=== PATIENT | female | born 1975 | race Caucasian/White ===

== ENCOUNTER 2018-06-29 13:10 | Emergency (ER) | payer MEDICAID ==
[2018-06-29 13:18] VITALS: TEMP 98.6; BMI 24.3
[2018-06-29 13:32] VITALS: RESP 18; O2SAT 98
--- NOTE | 2018-06-29 13:36 | ED PDOC ---
Arrival/HPI - General Time Seen by Provider: 06/29/18 13:17 Historian: Patient - History of Present Illness Narrative History of Present Illness (Text): 06/29/18 13:23 43 y/o female, no significant pmh, nkda, c/o rt. flank pain and lt. sided chest pain x 2 weeks. Pt. stated that she has rt. flank pain with occasionally to the RLQ/rt. thigh region, stated that she feels left sided chest pain as well. Pt. has no nausea/vomiting/diarrhea, no pleuritic pain, no numbness or tingling, no rash, no diarrhea, no other medical or psychological complaints. Past Medical History - Provider Review Nursing Documentation Reviewed: Yes Primary Care Provider: Lee Luther Jr. - Infectious Disease Hx of Infectious Diseases: None - Tetanus Immunization Tetanus Immunization: Up to Date - Past Medical History Past Medical History: No Previous - Psychiatric Hx Depression: No Hx Emotional Abuse: No Hx Physical Abuse: No Hx Substance Use: Yes - Past Surgical History Past Surgical History: No Previous - Anesthesia Hx Anesthesia: No - Suicidal Assessment Feels Threatened In Home Enviroment: No Family/Social History - Physician Review Nursing Documentation Reviewed: Yes Family/Social History: Unknown Family HX Smoking Status: Heavy Smoker > 10 Cigarettes Daily Hx Alcohol Use: Yes Frequency of alcohol use: Socially Hx Substance Use: Yes Substance used: marijuana Hx Substance Use Treatment: No Allergies/Home Meds Allergies/Adverse Reactions: Allergies No Known Allergies Allergy (Verified 06/29/18 13:18) Review of Systems - Review of Systems Constitutional: absent: Fatigue, Fevers Eyes: absent: Vision Changes ENT: absent: Hearing Changes Respiratory: absent: SOB, Cough Cardiovascular: Chest Pain Gastrointestinal: Abdominal Pain (rt. flank pain). absent: Diarrhea, Nausea, Vomiting Musculoskeletal: absent: Arthralgias, Back Pain Skin: absent: Rash, Pruritis Neurological: absent: Headache, Dizziness Hemo/Lymphatic: absent: Adenopathy Psychiatric: absent: Anxiety, Depression, Suicidal Ideation Physical Exam Vital Signs Reviewed: Yes Vital Signs Temp Pulse Resp BP Pulse Ox 06/29/18 13:18 98.6 F 90 20 141/74 99 Temperature: Afebrile Blood Pressure: Normal Pulse: Regular Respiratory Rate: Normal Appearance: Positive for: Well-Appearing, Non-Toxic, Comfortable Pain Distress: Moderate Mental Status: Positive for: Alert and Oriented X 3 - Systems Exam Head: Present: Atraumatic, Normocephalic Pupils: Present: PERRL Extroacular Muscles: Present: EOMI Conjunctiva: Present: Normal Ears: Present: NORMAL TM, Normal Canal. No: Erythema Mouth: Present: Moist Mucous Membranes Pharnyx: No: ERYTHEMA, EXUDATE, TONSILS ENLARGED Nose (External): Present: Atraumatic. No: Abrasion, Contusion, Laceration, Lesions Nose (Internal): Present: Normal Inspection, No Active Bleeding. No: Rhinorrhea, Septal Hematoma, Epistaxis Neck: Present: Normal Range of Motion, Trachea Midline. No: Meningeal Signs, MIDLINE TENDERNESS, Paraspinal Tenderness, Lymphadenopathy Respiratory/Chest: Present: Clear to Auscultation, Good Air Exchange, Other (pain is 100% reproducible by palpating the lt. chest pain pectoralis major muscle. ). No: Respiratory Distress, Accessory Muscle Use, Wheezes, Decreased Breath Sounds, Rales, Retracting, Rhonchi, Tachypneic, Tender to Palpation Cardiovascular: Present: Regular Rate and Rhythm, Normal S1, S2. No: Murmurs Abdomen: Present: Tenderness (Rt. flank), Normal Bowel Sounds. No: Distention, Peritoneal Signs, Rebound, Guarding, Rovsing's Sign Present Back: Present: Normal Inspection, Other (Thoracic to LS spine: no midline tenderness or step off, FROM without limitation, sensation intact, motor 5/5, no saddling gait, walking with normal gait and posture. ). No: CVA Tenderness, Midline Tenderness, Paraspinal Tenderness, Pain with Leg Raise, Decubitus Ulcer Upper Extremity: Present: Normal Inspection, Normal ROM, NORMAL PULSES, Neurovascularly Intact, Capillary Refill < 2s. No: Cyanosis, Edema, Tenderness, Swelling, Erythema, Temperature Abnormalties, Deformity Lower Extremity: Present: Normal Inspection, NORMAL PULSES, Normal ROM, Neurovascularly Intact. No: Edema, CALF TENDERNESS, Cyanosis, Ciara's Sign, Tenderness, Swelling, Erythema, Deformity, Temperature Abnormalties Neurological: Present: GCS=15, CN II-XII Intact, Speech Normal, Motor Func Grossly Intact, Normal Cerebellar Funct, Gait Normal, Memory Normal Skin: Present: Warm, Dry, Normal Color. No: Rashes Psychiatric: Present: Alert, Oriented x 3, Normal Insight, Normal Concentration Medical Decision Making ED Course and Treatment: 06/29/18 13:45 -labs -ekg -cxr -CT abdomena and pelvis -IVF/toradol/valium -Observe and reassess 06/29/18 17:10 -Urine hcg is negative -EKG: NSR @ 70 BPM, no ST elevation or depression, no T wave inversion, normal GA/QRS/QT intervals -Chest xray No active disease. -CT abdomen and pelvis: Potential segmental colitis affecting the sigmoid colon with borderline diverticula associated. No pericolic reaction or fluid collection. This segment is also collapsed limiting evaluation of the wall. Consider follow-up lower endoscopy, particularly lack of symptom pattern here on current presentation. Unremarkable appearing kidneys bilaterally. -RLE Venuous Doppler: No sonographic evidence for deep venous thrombosis in the visualized segments of the right lower extremity. -Labs are nonsignificant -Trop after 24 hours is negative -PERC is negative for PE -HEART score is low -UA -Pt. feels much better, labs and radiology results discussed including CT result for segmental colitis, will placed on cipro and flagyl, pt. educated about avoid gym and excise while taking ciprofloxacin as this may causes achilles tendon rupture or prolong QT. Pt. verbally expressed understanding. -Discharge home with ciprofloxacin/flagyl, motrin, pepcid, follow up with your own pmd and GI within 2 days, return to the ER for any new or worsening signs or symptoms, avoid gym and exercise while taking the antibiotic. - RAD Interpretation Radiology Orders: Chest xray: Date of service: 06/29/2018 HISTORY: cheat pain x 2 weeks COMPARISON: 07/01/2012 TECHNIQUE: 1 view obtained. FINDINGS: LUNGS: No active pulmonary disease. PLEURA: No significant pleural effusion identified, no pneumothorax apparent. CARDIOVASCULAR: No aortic atherosclerotic calcification present. Normal cardiac size. No pulmonary vascular congestion. OSSEOUS STRUCTURES: No significant abnormalities. VISUALIZED UPPER ABDOMEN: Normal. OTHER FINDINGS: None. IMPRESSION: No active disease. RLE Venuous Doppler: PROCEDURE: Right lower extremity venous US HISTORY: Leg pain and swelling. Evaluate for DVT. PHYSICIAN(S): Juventino Maynard M.D. TECHNIQUE: Duplex sonography and color-flow Doppler with graded compression were used to evaluate the deep venous system of the right lower extremity. FINDINGS: The visualized deep venous system of the right lower extremity is sonographically normal and compressible. Normal waveforms and augmentation are seen. There is no sonographic evidence for deep venous thrombosis in the visualized segments of the right lower extremity. IMPRESSION: 1. No sonographic evidence for deep venous thrombosis in the visualized segments of the right lower extremity. CT Abdomen and pelvis; Date of service: 06/29/2018 PROCEDURE: CT Abdomen and Pelvis with contrast HISTORY: rt. flank pain COMPARISON: None. TECHNIQUE: Following the intravenous administration of iodinated contrast material, a CT examination of the abdomen and pelvis was performed from the domes of the diaphragms to the symphysis pubis with reformatted datasets provided in axial, sagittal and coronal planes. Oral contrast was not administered as per referring physician request. Contrast dose: Omnipaque 350, 96 cc Radiation dose: Total exam DLP = 354.58 mGy-cm. This CT exam was performed using one or more of the following dose reduction techniques: Automated exposure control, adjustment of the mA and/or kV according to patient size, and/or use of iterative reconstruction technique. FINDINGS: LOWER THORAX: Unremarkable. LIVER: Tiny lucency right lobe liver nearly abutting the gallbladder fossa, too small to characterize. The remainder of the liver is unremarkable appearing. GALLBLADDER AND BILE DUCTS: Unremarkable. PANCREAS: Unremarkable. No gross lesion or ductal dilatation. SPLEEN: Unremarkable. ADRENALS: Unremarkable. No mass. KIDNEYS AND URETERS: No radiodense urolithiasis, perinephric fluid collection or obstructive uropathy is appreciate bilaterally. The bilateral ureters appear normal caliber overall. No parenchymal mass identified bilaterally. The lack of intravenous contrast limits evaluation of the renal parenchyma bilaterally. VASCULATURE: Unremarkable. No aortic aneurysm. No aortic atherosclerotic calcification or mural plaque present. BOWEL: The stomach is collapsed not well evaluated. No small bowel obstruction is identified. The large bowel is not obstructed either but there is thickening of the sigmoid segment with limited diverticula but no pericolic reaction related. This segment is also collapsed. Marginal segmental colitis is not excluded here. Clinically correlate further. APPENDIX: Normal appendix. PERITONEUM: Unremarkable. No free fluid. No free air. LYMPH NODES: Unremarkable. No enlarged lymph nodes. BLADDER: Unremarkable. REPRODUCTIVE: Fibroid uterine changes identified. BONES: No acute fracture. OTHER FINDINGS: None. IMPRESSION: Potential segmental colitis affecting the sigmoid colon with borderline diverticula associated. No pericolic reaction or fluid collection. This segment is also collapsed limiting evaluation of the wall. Consider follow-up lower endoscopy, particularly lack of symptom pattern here on current pre sentation. Unremarkable appearing kidneys bilaterally. Polytechnic Registrar: Radiologist - PA / REFRIGERATION ENGINEER / Resident Statement / has reviewed & agrees with the documentation as recorded. Disposition/Present on Arrival - Present on Arrival Any Indicators Present on Arrival: No History of DVT/PE: No History of Uncontrolled Diabetes: No Urinary Catheter: No History of Decub. Ulcer: No History Surgical Site Infection Following: None - Disposition Have Diagnosis and Disposition been Completed?: Yes Diagnosis: Colitis Disposition: HOME/ ROUTINE Disposition Time: 17:13 Patient Plan: Discharge Condition: IMPROVED Discharge Instructions (ExitCare): Colitis Additional Instructions: -Discharge home with ciprofloxacin/flagyl, motrin, pepcid, follow up with your own pmd and GI within 2 days, return to the ER for any new or worsening signs or symptoms, avoid gym and exercise while taking the antibiotic. Prescriptions: Ciprofloxacin/Ciprofloxa HCl [Ciprofloxacin] 500 mg PO BID #14 tab Famotidine [Pepcid] 20 mg PO BID #20 tab Ibuprofen [Motrin] 600 mg PO QID PRN #30 tab PRN Reason: Other metroNIDAZOLE [Flagyl] 500 mg PO TID #21 tab Referrals: Lee Luther Jr., MD [Primary Care Provider] - Follow up with primary Ya Mac MD [Staff Provider] - Follow up with primary Forms: WORK NOTE
[2018-06-29] MEDS ORDERED: Iohexol 350 MG/100 ML VIAL ONE (13:57)
--- NOTE | 2018-06-29 14:41 | RAD ---
Date of service: 06/29/2018 HISTORY: cheat pain x 2 weeks COMPARISON: 07/01/2012 TECHNIQUE: 1 view obtained. FINDINGS: LUNGS: No active pulmonary disease. PLEURA: No significant pleural effusion identified, no pneumothorax apparent. CARDIOVASCULAR: No aortic atherosclerotic calcification present. Normal cardiac size. No pulmonary vascular congestion. OSSEOUS STRUCTURES: No significant abnormalities. VISUALIZED UPPER ABDOMEN: Normal. OTHER FINDINGS: None. IMPRESSION: No active disease.
[2018-06-29 15:05] LABS: BASO # 0.05 K/mm3 (0.0-2.0); BASO % 0.7 % (0.0-3.0); EOS # 0.1 (0.0-0.7); EOS % 1.6 % (1.5-5.0); HEMOGLOBIN 14.9 g/dL (12.0-16.0); LYMPH # 2.5 (1.2-3.4); LYMPH % 33.6 % (22.0-35.0); MEAN CELL VOLUME 102.7 fl (80.0-105.0); MEAN CORPUSCULAR HEMOGLOBIN 33.6 pg (25.0-35.0); MEAN CORPUSCULAR HGB CONC 32.7 g/dl (31.0-37.0); MEAN PLATELET VOLUME 10.3 fl (7.0-11.0); MONO # 0.6 (0.1-0.6); MONO % 8.3 % (1.0-6.0); RBC 4.44 10^6/uL (3.5-6.1); RED CELL DISTRIBUTION WIDTH 13.3 % (11.5-14.5); WHITE BLOOD COUNT 7.5 10^3/uL (4.5-11.0)
[2018-06-29 15:14] LABS: ALB/GLOB RATIO 1.2 (1.1-1.8); ALBUMIN 4.5 g/dL (3.0-4.8); ALT/SGPT 20 U/L (7-56); AST/SGOT 27 U/L (14-36); BLOOD UREA NITROGEN 15 mg/dL (7-21); CALCIUM 9.6 mg/dL (8.4-10.5); GFR NON-AFRICAN AMERICAN > 60; LIPASE 65 U/L (23-300)
[2018-06-29 15:24] LABS: TROPONIN I < 0.01 ng/mL
[2018-06-29 16:12] VITALS: BP 111/74; PULSE 85
--- NOTE | 2018-06-29 16:13 | CT ---
Date of service: 06/29/2018 PROCEDURE: CT Abdomen and Pelvis with contrast HISTORY: rt. flank pain COMPARISON: None. TECHNIQUE: Following the intravenous administration of iodinated contrast material, a CT examination of the abdomen and pelvis was performed from the domes of the diaphragms to the symphysis pubis with reformatted datasets provided in axial, sagittal and coronal planes. Oral contrast was not administered as per referring physician request. Contrast dose: Omnipaque 350, 96 cc Radiation dose: Total exam DLP = 354.58 mGy-cm. This CT exam was performed using one or more of the following dose reduction techniques: Automated exposure control, adjustment of the mA and/or kV according to patient size, and/or use of iterative reconstruction technique. FINDINGS: LOWER THORAX: Unremarkable. LIVER: Tiny lucency right lobe liver nearly abutting the gallbladder fossa, too small to characterize. The remainder of the liver is unremarkable appearing. GALLBLADDER AND BILE DUCTS: Unremarkable. PANCREAS: Unremarkable. No gross lesion or ductal dilatation. SPLEEN: Unremarkable. ADRENALS: Unremarkable. No mass. KIDNEYS AND URETERS: No radiodense urolithiasis, perinephric fluid collection or obstructive uropathy is appreciate bilaterally. The bilateral ureters appear normal caliber overall. No parenchymal mass identified bilaterally. The lack of intravenous contrast limits evaluation of the renal parenchyma bilaterally. VASCULATURE: Unremarkable. No aortic aneurysm. No aortic atherosclerotic calcification or mural plaque present. BOWEL: The stomach is collapsed not well evaluated. No small bowel obstruction is identified. The large bowel is not obstructed either but there is thickening of the sigmoid segment with limited diverticula but no pericolic reaction related. This segment is also collapsed. Marginal segmental colitis is not excluded here. Clinically correlate further. APPENDIX: Normal appendix. PERITONEUM: Unremarkable. No free fluid. No free air. LYMPH NODES: Unremarkable. No enlarged lymph nodes. BLADDER: Unremarkable. REPRODUCTIVE: Fibroid uterine changes identified. BONES: No acute fracture. OTHER FINDINGS: None. IMPRESSION: Potential segmental colitis affecting the sigmoid colon with borderline diverticula associated. No pericolic reaction or fluid collection. This segment is also collapsed limiting evaluation of the wall. Consider follow-up lower endoscopy, particularly lack of symptom pattern here on current presentation. Unremarkable appearing kidneys bilaterally.
--- NOTE | 2018-06-29 17:02 | US ---
PROCEDURE: Right lower extremity venous US HISTORY: Leg pain and swelling. Evaluate for DVT. PHYSICIAN(S): Juventino Maynard M.D. TECHNIQUE: Duplex sonography and color-flow Doppler with graded compression were used to evaluate the deep venous system of the right lower extremity. FINDINGS: The visualized deep venous system of the right lower extremity is sonographically normal and compressible. Normal waveforms and augmentation are seen. There is no sonographic evidence for deep venous thrombosis in the visualized segments of the right lower extremity. IMPRESSION: 1. No sonographic evidence for deep venous thrombosis in the visualized segments of the right lower extremity.
--- NOTE | 2018-06-30 10:30 | CARD ---
APPROVED REPORT Date of service: 06/29/2018 EKG Measurement Heart [id number] HI [id number] <Conclusion> Normal sinus rhythm Possible Left atrial enlargement Borderline ECG
== END 2018-06-29 17:25 | disposition home or self-care (01) ==
LOC: ED 13:10
DX: K52.9 Noninfective gastroenteritis and colitis, unspecified (principal)
CPT/HCPCS: 71045; 74177; 80053; 81025; 83690; 83735; 84484; 85025; 93005; 93971; 99284; Q9967